=== PATIENT | female | born 1980 | race Caucasian/White ===

== ENCOUNTER → 2019-10-27 | Outpatient (CLI) | payer MEDICAID, SELFPAY | END | disposition home or self-care (01) | LOC: LAB 10:12 | PROVIDERS: ATTEND Obstetrics & Gynecology | DX: Z34.93 Encounter for supervision of normal pregnancy, unspecified, third trimester (principal); Z3A.39 39 weeks gestation of pregnancy | CPT/HCPCS: C9803; U0003 ==

== ENCOUNTER 2019-10-29 11:45 | Inpatient (IN) | payer MEDICAID ==
[~2019-10-29] VITALS: Ht 162.6 cm; Wt 78.0 kg
[2019-10-29] MEDS ORDERED: LACTATED RINGERS 1,000 ML IV SCH (12:13)
[2019-10-29] MEDS ORDERED: DEXT 5%/LR + PITOCIN 20UNITS/L 1,000 ML IV SCH ×2 (12:13→16:07)
[2019-10-29] MEDS ORDERED: METHYLERGONOVINE MALEATE 0.2 MG/ML IM PRN (12:15)
[2019-10-29] MEDS ORDERED: CITRIC ACID/SODIUM CITRATE SOLN 30ML UDC PO SCH (12:15)
[2019-10-29] MEDS: LACTATED RINGERS 1,000 ML IV SCH ×2 (12:30→22:40)
[2019-10-29 12:45] LABS: BASOPHILS % 0.3 % (0.0-2.0); EOSINOPHILS % 4.4 % (0.0-5.0); HEMATOCRIT. 35.9 % (36.0-48.0); HEMOGLOBIN. 12.3 g/dL (12.0-16.0); MEAN CORPUSCULAR HEMOGLOBIN 29.8 pg (28.0-32.0); MEAN CORPUSCULAR VOLUME 87.4 fL (81.0-99.0); MEAN PLATELET VOLUME 10.9 fl (7.4-10.4); MONOCYTES % 6.3 % (2.0-8.0); PLATELET 200 x1000/uL (130-400); RED BLOOD CELL COUNT 4.11 mill/uL (4.2-5.4); RED CELL DISTRIBUTION WIDTH 14.7 % (11.6-14.6)
[2019-10-29] MEDS ORDERED: GLYCOPYRROLATE 0.2 MG/ML 2ML VIAL ONE (12:48)
[2019-10-29] MEDS ORDERED: EPHEDRINE SULFATE 50MG/ML VIAL ONE (12:48)
[2019-10-29] MEDS ORDERED: CEFAZOLIN SODIUM 1000MG/VIAL ONE (12:48)
[2019-10-29] MEDS ORDERED: OXYTOCIN 10 UNITS/ML 1ML ONE (12:48)
[2019-10-29] MEDS ORDERED: METOCLOPRAMIDE HCL 10MG/2ML VIAL ONE (12:48)
[2019-10-29] MEDS ORDERED: MORPHINE SULFATE/PF 1MG/ML 10ML AMP ONE (12:48)
[2019-10-29] MEDS ORDERED: FENTANYL CITRATE/PF 50MCG/ML 2ML VIAL ONE (12:48)
[2019-10-29] MEDS ORDERED: ONDANSETRON HCL 4MG/2ML INJ ONE (12:48)
[2019-10-29] MEDS ORDERED: PHENYLEPHRINE HCL 10 MG/ML 1ML (IV VIAL) IV ONE (12:48)
[2019-10-29 12:57] LABS: CLARITY URINE CLEAR (CLEAR); COLOR URINE YELLOW (YELLOW); KETONES URINE TRACE (NEGATIVE); LEUKOCYTE ESTERASE URINE NEGATIVE (NEGATIVE); NITRITE URINE NEGATIVE (NEGATIVE); OCCULT BLOOD URINE NEGATIVE (NEGATIVE); PROTEIN URINE NEGATIVE (NEGATIVE); SPECIFIC GRAVITY URINE 1.013 (1.005-1.030); UROBILINOGEN URINE 0.2 E.U./dL (0.2-1.0)
[2019-10-29 13:04] LABS: INR 0.9; PARTIAL THROMBOPLASTIN TIME 27.8 sec (23.4-31.0); PROTHROMBIN TIME 9.8 sec (9.6-11.0)
[2019-10-29 13:11] LABS: *AMPHETAMINES SCREEN URINE NEGATIVE (NEGATIVE); *BARBITURATES SCREEN URINE NEGATIVE (NEGATIVE); *BENZODIAZEPINES SCREEN URINE NEGATIVE (NEGATIVE); *COCAINE SCREEN URINE NEGATIVE (NEGATIVE); METHADONE URINE SCREEN NEGATIVE (NEGATIVE); OPIATES URINE SCREEN NEGATIVE (NEGATIVE)
[2019-10-29 13:12] LABS: CANNABINOID URINE SCREEN NEGATIVE (NEGATIVE); PHENCYCLIDINE URINE SCREEN NEGATIVE (NEGATIVE)
[2019-10-29 13:24] LABS: HEPATITIS B SURFACE ANTIGEN NEGATIVE
[2019-10-29] MEDS ORDERED: KETOROLAC 60MG/2ML VIAL IM ONE (15:05)
[2019-10-29] MEDS ORDERED: DIPHENHYDRAMINE 50MG/ML VIAL ONE (15:05)
[2019-10-29] MEDS ORDERED: DEXT 5%/LACTATED RINGERS 1,000 ML IV SCH (16:07)
[2019-10-29] MEDS ORDERED: HYDROCODONE/ACETAMINOPHEN 5/325MG TABLET PO PRN (16:15)
[2019-10-29] MEDS ORDERED: DIPHENHYDRAMINE 25MG CAPSULE PO PRN (16:15)
[2019-10-29] MEDS ORDERED: BISACODYL 10MG SUPP PR PRN (16:15)
[2019-10-29] MEDS ORDERED: IBUPROFEN 400MG TABLET PO PRN (16:15)
[2019-10-29] MEDS ORDERED: HEMORRHOIDAL SUPP PR PRN (16:15)
[2019-10-29] MEDS ORDERED: ONDANSETRON HCL 4MG/2ML INJ IV PRN (16:15)
[2019-10-29] MEDS ORDERED: LANOLIN OINT 7GM TUBE TOP PRN (16:15)
[2019-10-29 18:15] VITALS: BP 112/49
[2019-10-29] MEDS ORDERED: BUTORPHANOL TARTRATE 2 MG/ML VIAL IV PRN (19:00)
[2019-10-29] MEDS ORDERED: NALOXONE HCL 0.4 MG/ML 1ML VIAL IV PRN (19:00)
[2019-10-29] MEDS ORDERED: DIPHENHYDRAMINE 50MG/ML VIAL IV PRN (19:00)
[2019-10-29 19:30] VITALS: BP 99/54
[2019-10-29] MEDS: DOCUSATE SODIUM 100MG CAPSULE PO SCH (21:00)
[2019-10-29] MEDS: SIMETHICONE 80MG TABLET CHEW PO SCH (21:00)
[2019-10-29] MEDS: KETOROLAC 30MG/ML VIAL IV SCH (22:33)
[2019-10-30] VITALS: BP 107/62
[2019-10-30 04:00] VITALS: BP 105/85
[2019-10-30] MEDS: KETOROLAC 30MG/ML VIAL IV SCH (05:54)
[2019-10-30 08:00] VITALS: BP 97/56
[2019-10-30 08:05] LABS: BASOPHILS % 0.4 % (0.0-2.0); EOSINOPHILS % 0.4 % (0.0-5.0); HEMATOCRIT. 28.1 % (36.0-48.0); HEMOGLOBIN. 9.7 g/dL (12.0-16.0); LYMPHOCYTES % 18.3 % (20.0-50.0); MEAN CORPUSCULAR HEMOGLOBIN 30.2 pg (28.0-32.0); MEAN CORPUSCULAR VOLUME 88.1 fL (81.0-99.0); MEAN PLATELET VOLUME 10.7 fl (7.4-10.4); MONOCYTES % 7.7 % (2.0-8.0); NEUTROPHILS % 73.2 % (40.0-76.0); PLATELET 180 x1000/uL (130-400); RED CELL DISTRIBUTION WIDTH 14.6 % (11.6-14.6)
[2019-10-30 13:30] VITALS: BP_SYST 107; BP_SYST 97; BP_DIAS 56
[2019-10-30] MEDS: FERROUS SULFATE 325MG TABLET PO SCH (14:47)
[2019-10-30] MEDS: PRENATAL VIT/FE FUMARATE/FA TABLET PO SCH (14:47)
[2019-10-30] MEDS: SIMETHICONE 80MG TABLET CHEW PO SCH ×2 (14:48→19:47)
[2019-10-30] MEDS: IBUPROFEN 800MG TABLET PO PRN ×2 (14:48→19:46)
[2019-10-30 15:53] VITALS: BP 97/56
[2019-10-30 19:30] VITALS: BP 97/48
[2019-10-30] MEDS: DOCUSATE SODIUM 100MG CAPSULE PO SCH (19:47)
[2019-10-31 00:01] VITALS: BP 94/52
[2019-10-31 04:50] VITALS: BP 100/56
[2019-10-31] MEDS: IBUPROFEN 800MG TABLET PO PRN ×2 (04:55→18:22)
[2019-10-31 07:30] VITALS: BP 91/46
[2019-10-31 12:01] VITALS: BP 95/55
[2019-10-31 16:08] VITALS: BP 106/65
[2019-10-31] MEDS: SIMETHICONE 80MG TABLET CHEW PO SCH ×2 (16:19→21:14)
[2019-10-31] MEDS: FERROUS SULFATE 325MG TABLET PO SCH (16:19)
[2019-10-31] MEDS: PRENATAL VIT/FE FUMARATE/FA TABLET PO SCH (16:19)
[2019-10-31 19:15] VITALS: BP 112/66
[2019-10-31] MEDS: DOCUSATE SODIUM 100MG CAPSULE PO SCH (21:14)
[2019-11-01 00:40] VITALS: BP 107/63
[2019-11-01] MEDS: IBUPROFEN 800MG TABLET PO PRN (02:39)
[2019-11-01 02:45] VITALS: BP 105/64
[2019-11-01 07:45] VITALS: BP 106/44
[2019-11-01] MEDS: FERROUS SULFATE 325MG TABLET PO SCH (08:54)
[2019-11-01] MEDS: PRENATAL VIT/FE FUMARATE/FA TABLET PO SCH (08:54)
== END 2019-11-01 15:15 | disposition home or self-care (01) | DRG 540 ==
LOC: 8 EST LDRP 11:45 → 8EST 18:00
PROVIDERS: ADMIT Obstetrics & Gynecology; ATTEND Obstetrics & Gynecology
PROC: 0UB70ZZ Excision of Bilateral Fallopian Tubes, Open Approach (ICD-10-PCS; principal; 2019-10-29)
PROC: 10D00Z1 Extraction of Products of Conception, Low, Open Approach (ICD-10-PCS; 2019-10-29)
DX: O34.219 Maternal care for unspecified type scar from previous cesarean delivery (principal); A60.00 Herpesviral infection of urogenital system, unspecified; O98.32 Other infections with a predominantly sexual mode of transmission complicating childbirth; Z30.2 Encounter for sterilization; Z37.0 Single live birth; Z3A.39 39 weeks gestation of pregnancy
CPT/HCPCS: 36415; 80305; 81003; 85025; 86592; 86703; 86762; 86850; 86900; 87340; 88302; 88307; J0690; J1200; J1885; J2274; J2370; J2405; J2590; J2765; J3010; J3490; J7120; J7121